=== PATIENT | female | born 1935 | race Caucasian/White ===

== ENCOUNTER 2016-02-13 01:38 | Emergency (ER) | payer MEDICARE, OTHER ==
[~2016-02-13] VITALS: Ht 160 cm; Wt 65.8 kg
[~2016-02-13 01:38] MED LIST: ADVIL,MOTRIN,R200 MG; ASPIRIN81 M1; ATENOLOL25 MG PO; B-100 COMPLEX100 MG PO; CEPHALEXIN500 M1 PO; CIPROFLOXACIN500 MG PO; COQ10 IN OIL 101 SGL PO; DILTIAZEM CD180 MG PO; ELIQUIS5 M1 PO; EXFORGE 5 MG PO; EXFORGE HCT 5 M1 TA1; LEVAQUIN250 MG PO; LIVER COMPLEX1 EACH PO; PREDNISONE20 MG PO; PREMARIN0.3 MG PO; PYRIDIUM100 MG PO; SALINE MIST 4545 ML NAS; TENORMIN25 MG PO; TYLENOL WITH CO1 TA1 PO; VICODIN 5/500 505 MG PO; VITAMIN C100 M3 PO; VITAMIN D1000 IU PO; XANAX0.25 MG; XARE15TA PO; [UNRECOGNIZED DRUG - OTHER] T
[2016-02-13] MEDS ORDERED: COQ1050 MG PO (01:58)
[2016-02-13] MEDS ORDERED: K-TAB10 MEQ PO (01:59)
[2016-02-13 02:16] LABS: BILIRUBIN NEGATIVE (NEGATIVE); BLOOD NEGATIVE (NEGATIVE); CLARITY CLEAR (CLEAR); COLOR YELLOW (YELLOW); GLUCOSE 3+ (NEGATIVE); KETONE NEGATIVE (NEGATIVE); LEUKO ESTERASE NEGATIVE (NEGATIVE); NITRITE NEGATIVE (NEGATIVE); PH 7.5 (5.0-9.0); PROTEIN 1+ (NEGATIVE); UROBILINOGEN 0.2 E.U./dl (0.2-1.0)
[2016-02-13 02:17] LABS: BASO # 0.1 10*3/uL (0.0-0.1); BASO % 0.7 % (0.0-1.0); EOS # 0.1 10*3/uL (0.0-0.4); HEMATOCRIT 41.2 % (37.0-47.0); HEMOGLOBIN 13.8 g/dl (12.0-16.0); LYMPH # 1.6 10*3/uL (1.3-4.4); LYMPH % 22.6 % (27.0-41.0); MEAN CELL VOLUME 99.8 fl (81.0-99.0); MEAN CORPUSCULAR HGB 33.4 pg (27.0-31.0); MEAN CORPUSCULAR HGB CONC 33.5 g/dl (33.0-37.0); MEAN PLATELET VOLUME 9.3 fl (9.6-12.3); MONO # 0.7 10*3/uL (0.1-1.0); MONO % 10.4 % (3.0-9.0); NEUT # 4.5 10*3/uL (2.3-7.9); NEUT % 64.9 % (47.0-73.0); PLATELET COUNT AUTOMATED 332 10*3/uL (130-400); RED BLOOD COUNT 4.13 10*6/uL (4.10-5.10); RED CELL DISTRI WIDTH 14.3 % (0-14.5); WHITE BLOOD COUNT 6.9 10*3/uL (4.8-10.8)
[2016-02-13 02:31] LABS: EPITHELIAL CELLS 0-5; RBC 0-2 rbc/hpf (0-2); URINE REFLEX COMMENT NO (NO)
[2016-02-13 02:37] LABS: BUN 11 mg/dl (7-24); CARBON DIOXIDE 30 mmol/L (21-32); CHLORIDE 98 mmol/L (98-107); EST GLOM FILT AFRICAN AMERICAN > 60 ml/min; GLUCOSE 322 mg/dL (65-99); SODIUM 138 mmol/L (136-145)
[2016-02-13] MEDS ORDERED: METFORMIN500 MG PO (04:22)
== END 2016-02-13 04:29 | disposition home or self-care (01) ==
LOC: ED 01:38
PROVIDERS: Emergency Medicine
DX: E11.65 Type 2 diabetes mellitus with hyperglycemia (principal); Z90.49 Acquired absence of other specified parts of digestive tract; Z90.710 Acquired absence of both cervix and uterus; Z88.2 Allergy status to sulfonamides

== ENCOUNTER 2016-08-19 04:59 | Inpatient (IN) | payer MEDICARE, OTHER ==
[~2016-08-19] VITALS: Ht 160 cm; Wt 56.7 kg
[2016-08-19] VITALS (11 sets, daily range): BP systolic 115–180; BP diastolic 55–88
[~2016-08-19 04:59] MED LIST changes: +COQ1050 MG PO; +K-TAB10 MEQ PO; +METFORMIN500 MG PO
[2016-08-19] MEDS ORDERED: ELIQUIS5 M1 PO (05:13)
[2016-08-19 05:58] LABS: BASO % 0.6 % (0.0-1.0); EOS # 0.1 10*3/uL (0.0-0.4); EOS % 1.3 % (1.0-4.0); HEMATOCRIT 39.9 % (37.0-47.0); HEMOGLOBIN 12.8 g/dl (12.0-16.0); LYMPH # 1.3 10*3/uL (1.3-4.4); LYMPH % 20.3 % (27.0-41.0); MEAN CELL VOLUME 90.3 fl (81.0-99.0); MEAN CORPUSCULAR HGB CONC 32.1 g/dl (33.0-37.0); MEAN PLATELET VOLUME 9.8 fl (9.6-12.3); MONO # 0.7 10*3/uL (0.1-1.0); MONO % 11.5 % (3.0-9.0); NEUT # 4.2 10*3/uL (2.3-7.9); NEUT % 65.7 % (47.0-73.0); PLATELET COUNT AUTOMATED 355 10*3/uL (130-400); RED BLOOD COUNT 4.42 10*6/uL (4.10-5.10); RED CELL DISTRI WIDTH 15.8 % (0-14.5); WHITE BLOOD COUNT 6.3 10*3/uL (4.8-10.8)
[2016-08-19 06:15] LABS: INTERNATIONAL NORM RATIO 1.1 (2.0-3.5); PROTHROMBIN TIME 12.2 SECONDS (9.0-12.4)
[2016-08-19 06:33] LABS: BILIRUBIN 1+ (NEGATIVE); BLOOD 3+ (NEGATIVE); CLARITY SL CLOUDY (CLEAR); COLOR YELLOW (YELLOW); GLUCOSE NEGATIVE (NEGATIVE); KETONE 1+ (NEGATIVE); LEUKO ESTERASE NEGATIVE (NEGATIVE); NITRITE NEGATIVE (NEGATIVE); PH 5.5 (5.0-9.0); PROTEIN 1+ (NEGATIVE)
[2016-08-19 06:41] LABS: BACTERIA 1+
[2016-08-19 06:42] LABS: URINE REFLEX COMMENT YES (NO)
[2016-08-19 06:50] LABS: ALBUMIN 3.4 gm/dl (3.1-4.5); ALKALINE PHOSPHATASE 73 U/L (45-117); BILIRUBIN, TOTAL 0.7 mg/dl (0.2-1.0); BUN 21 mg/dl (7-24); CARBON DIOXIDE 27 mmol/L (21-32); CHLORIDE 103 mmol/L (98-107); EST GLOM FILT AFRICAN AMERICAN > 60 ml/min; GLUCOSE 115 mg/dL (65-99); POTASSIUM 3.7 mmol/L (3.5-5.1); SGOT/AST 28 IU/L (3-35); SGPT/ALT 29 U/L (12-78); SODIUM 136 mmol/L (136-145); TOTAL PROTEIN 7.9 gm/dL (6.4-8.2)
[2016-08-19 12:54] LABS: HEMATOCRIT 37.9 % (37.0-47.0); HEMOGLOBIN 12.1 g/dl (12.0-16.0)
[2016-08-20] VITALS: BP 138/62
[2016-08-20 07:28] LABS: BASO # 0.1 10*3/uL (0.0-0.1); BASO % 1.1 % (0.0-1.0); EOS % 0.9 % (1.0-4.0); HEMATOCRIT 33.1 % (37.0-47.0); HEMOGLOBIN 10.7 g/dl (12.0-16.0); LYMPH # 1.2 10*3/uL (1.3-4.4); LYMPH % 27.2 % (27.0-41.0); MEAN CELL VOLUME 92.7 fl (81.0-99.0); MEAN CORPUSCULAR HGB CONC 32.3 g/dl (33.0-37.0); MEAN PLATELET VOLUME 10.1 fl (9.6-12.3); MONO # 0.6 10*3/uL (0.1-1.0); MONO % 12.4 % (3.0-9.0); NEUT # 2.6 10*3/uL (2.3-7.9); NEUT % 58.2 % (47.0-73.0); PLATELET COUNT AUTOMATED 325 10*3/uL (130-400); RED BLOOD COUNT 3.57 10*6/uL (4.10-5.10); RED CELL DISTRI WIDTH 15.5 % (0-14.5); WHITE BLOOD COUNT 4.5 10*3/uL (4.8-10.8)
[2016-08-20 08:00] VITALS: BP 160/80
[2016-08-20 12:00] VITALS: BP 145/66
[2016-08-20 16:00] VITALS: BP 152/56
[2016-08-20 20:00] VITALS: BP 154/60
[2016-08-21] VITALS: BP 155/62
[2016-08-21 08:00] VITALS: BP 168/93
[2016-08-21 08:43] LABS: BASO # 0.1 10*3/uL (0.0-0.1); BASO % 1.4 % (0.0-1.0); EOS # 0.1 10*3/uL (0.0-0.4); EOS % 1.4 % (1.0-4.0); HEMATOCRIT 33.7 % (37.0-47.0); HEMOGLOBIN 10.8 g/dl (12.0-16.0); LYMPH # 0.9 10*3/uL (1.3-4.4); LYMPH % 20.5 % (27.0-41.0); MEAN CELL VOLUME 92.8 fl (81.0-99.0); MEAN CORPUSCULAR HGB 29.8 pg (27.0-31.0); MEAN PLATELET VOLUME 10.1 fl (9.6-12.3); MONO # 0.6 10*3/uL (0.1-1.0); NEUT # 2.8 10*3/uL (2.3-7.9); NEUT % 63.5 % (47.0-73.0); PLATELET COUNT AUTOMATED 315 10*3/uL (130-400); RED BLOOD COUNT 3.63 10*6/uL (4.10-5.10); RED CELL DISTRI WIDTH 15.7 % (0-14.5); WHITE BLOOD COUNT 4.4 10*3/uL (4.8-10.8)
[2016-08-21 09:13] LABS: BUN 8 mg/dl (7-24); CARBON DIOXIDE 21 mmol/L (21-32); CHLORIDE 106 mmol/L (98-107); EST GLOM FILT AFRICAN AMERICAN > 60 ml/min; GLUCOSE 193 mg/dL (65-99); POTASSIUM 3.8 mmol/L (3.5-5.1); SODIUM 138 mmol/L (136-145)
[2016-08-21 12:00] VITALS: BP 153/66
[2016-08-21 16:00] VITALS: BP 155/63
[2016-08-21 20:00] VITALS: BP 156/68
[2016-08-22] VITALS: BP 150/66
[2016-08-22] MEDS ORDERED: CIPRO500 MG PO (07:31)
[2016-08-22 08:00] VITALS: BP 158/78
== END 2016-08-22 10:15 | disposition home or self-care (01) | DRG 377 ==
LOC: ED 04:59 → EDHOLD 06:59 → 4E 06:59
PROVIDERS: Emergency Medicine; Internal Medicine; Internal Medicine Gastroenterology
PROC: 0W3P8ZZ Control Bleeding in Gastrointestinal Tract, Via Natural or Artificial Opening Endoscopic (ICD-10-PCS; principal; 2016-08-19)
DX: K57.91 Diverticulosis of intestine, part unspecified, without perforation or abscess with bleeding (principal); G93.41 Metabolic encephalopathy; N39.0 Urinary tract infection, site not specified; I48.2 Chronic atrial fibrillation; I10 Essential (primary) hypertension; E11.9 Type 2 diabetes mellitus without complications; B96.20 Unspecified Escherichia coli [E. coli] as the cause of diseases classified elsewhere; K64.9 Unspecified hemorrhoids; K29.50 Unspecified chronic gastritis without bleeding; H35.30 Unspecified macular degeneration; Z90.710 Acquired absence of both cervix and uterus; Z79.01 Long term (current) use of anticoagulants; Z90.49 Acquired absence of other specified parts of digestive tract; Z88.2 Allergy status to sulfonamides; Z91.048 Other nonmedicinal substance allergy status; Z79.899 Other long term (current) drug therapy; Z87.81 Personal history of (healed) traumatic fracture; Z82.49 Family history of ischemic heart disease and other diseases of the circulatory system; Z82.3 Family history of stroke; Z83.3 Family history of diabetes mellitus; Z66 Do not resuscitate; Z51.5 Encounter for palliative care

== ENCOUNTER → 2017-01-23 | Outpatient (CLI) | payer MEDICARE, OTHER ==
[~2017-01-23] MED LIST changes: +CIPRO500 MG PO
== END | disposition home or self-care (01) ==
LOC: ORTHO 01-20 20:43
DX: M17.11 Unilateral primary osteoarthritis, right knee (principal); M85.861 Other specified disorders of bone density and structure, right lower leg; M76.9 Unspecified enthesopathy, lower limb, excluding foot

== ENCOUNTER → 2017-08-24 | Outpatient (CLI) | payer MEDICARE, OTHER | END | disposition home or self-care (01) | LOC: RAD 12:01 | DX: R07.81 Pleurodynia (principal) ==

== ENCOUNTER 2018-05-12 09:31 | Inpatient (IN) | payer MEDICARE, OTHER ==
[2018-05-12] VITALS (7 sets, daily range): BP systolic 158–184; BP diastolic 60–81
[~2018-05-12] VITALS: Ht 160 cm; Wt 59.6 kg
--- NOTE | ~2018-05-12 | EKG ---
[place], [place] ELECTROCARDIOGRAM REPORT NAME: CHAZ ROBERTSON I UNIT #: [id number] ROOM: 512 DOCTOR: SANDI DRAFT REPORT BIRTHDATE: [birth year] [facility] Test Date: 2018-05-12 Test Time: 09:47:17 Pat Name: CHAZ ROBERTSON Department: Room: 512 Gender: F [employer]ter: : [id number] Requested By: THUY ROSARIO PA-C Order Number: [id number] Reading MD: Nicole Tosusaint MD Measurements Intervals [place] Rate: 110 P: MI: QRS: 102 QRSD: 88 T: 64 QT: 372 QTc: 504 Interpretive Statements Atrial fibrillation Right axis deviation Abnormal R-wave progression, late transition Prolonged QT interval Electronically Signed On 05-12-2018 15:09:45 PDT by Nicole Toussaint MD CM:EKGRPT:ELECTROCARDIOGRAM REPORT [id number] TUHY ROSARIO PA-C EPIPHANY DRAFT REPORT THUY ROSARIO PA-C
--- NOTE | ~2018-05-12 | PR ---
[place], [place] PROGRESS NOTE NAME: [facility] ROBERTSON I [id number] UNIT #: [id number] ROOM: 512 DOCTOR: CHANTE MERIDA,JESSICA BIRTHDATE: [birth year] DOS: 05/14/2018 REASON FOR VISIT: CHF and atrial fibrillation. SUBJECTIVE: The patient is feeling better. Denies any chest pain, shortness of breath. She declined IV Bumex today. No palpitation, dizziness, no PND, orthopnea, no edema, no fever and chills. No nausea, vomiting, or diarrhea. No musculoskeletal symptoms, no genitourinary symptoms. No neurologic symptoms. REVIEW OF SYSTEMS: Review of the 8 system negative except as mentioned above. OBJECTIVE PHYSICAL EXAMINATION: VITAL SIGNS: Blood pressure 140/52, pulse 73, respiration is 18. GENERAL: Alert, comfortable, no acute distress. HEENT: Supple, no distended neck veins, no carotid bruit. Pupils are equal, no jaundice. Tongue was moist and pharynx Clear. CHEST: Symmetrical, nontender. LUNGS: Clear to auscultation bilaterally. HEART: Irregularly irregular, no S3. Grade 1/6 systolic murmur. ABDOMEN: Benign, nontender. Bowel sounds normal. EXTREMITIES: Showed no edema. Distal pulses palpable. SKIN: Warm and dry. No cyanosis, no clubbing. RECTAL: Deferred. GENITOURINARY: Deferred. NEUROLOGIC: The patient is alert, oriented. No focal neurologic deficit. IMPRESSION: 1. Atrial fibrillation with rapid ventricular rate, rate controlled. 2. Acute and chronic heart failure, possible diastolic heart failure, 2D echo pending. 3. Valvular heart disease. 4. Hypertension. 5. Borderline elevation of troponin due to tachycardia. RECOMMENDATION: 1. Continue current medication. 2. Continue her Eliquis. 3. The patient elected to take her Lasix 20 mg a day and does not want to take her Bumex. 4. We will check her 2D echo, which was done today. 5. Monitor heart rate and blood pressures. 6. The patient would like to go home today and follow with Dr. Fitzgerald, her filament tester in 1-2 weeks. 7. There is no family at bedside at the time of examination. 8. She will be discharged home today per her request and follow up with her filament tester, Dr. Fitzgerald in 1-2 weeks. Medications and diet compliance was discussed with her. [place], [place] PROGRESS NOTE NAME: CHAZ ROBERTSON I UNIT #: [id number] ROOM: 512 DOCTOR: CHANTE MERIDA,JESSICA BIRTHDATE: [birth year] JESSICA SHARIF MD CM:PNDICK [phone] JESSICA SHARIF MD 05/15/18 0610 interface
--- NOTE | ~2018-05-12 | DS ---
[place], [place] DISCHARGE SUMMARY [id number] UNIT #: [id number] ROOM: 512 DOCTOR: CAITY TRIPLETT MD BIRTHDATE: [birth year] DOS: 05/14/2018 DISCHARGE DIAGNOSES: 1. Acute systolic type congestive heart failure. 2. Minimally elevated troponin I level secondary to acute congestive heart failure. 3. Aortic stenosis. 4. The patient follows up with Dr. Fitzgerald in [place] at [facility]. 5. Chronic atrial fibrillation. The patient is anticoagulated with Eliquis. 6. Chronic obstructive pulmonary disease. 7. Type 2 diabetes mellitus. 8. Macular degeneration. 9. Benign essential hypertension. HOSPITAL COURSE: The patient was admitted to [facility] when she presented to the Emergency Department with increased shortness of breath off and on, especially when lying down, which is getting worse. ProBNP was elevated to 3350. She was found to have acute congestive heart failure on the chest x-ray and some infiltrates, which were not compatible with pneumonia. The patient had no other signs of infection, no fever, no leukocytosis. The patient improved quickly with treatment with IV Bumex and Cardiology were consulted. Aortic stenosis, which contributes to her congestive heart failure, is generally followed by Dr. Fitzgerald in [place] and was reevaluated with an echocardiogram during the stay at the hospital by Dr. Toussaint, the cartography/mapping technician. The patient has acute systolic type congestive heart failure and aortic stenosis treated with diuresis with IV Bumex and she is not requiring oxygen any more. The patient is insisting on going home today at any cost because of her home situation and if cleared by Cardiology, she will be discharged to home. Urinary tract infection with Escherichia coli to be treated with antibiotic as an outpatient. The bacteria is sensitive to all antibiotics checked. Adult failure to thrive and dyspnea on exertion. The patient worked with physical therapy and she is feeling better. LABORATORY DATA: No leukocytosis. Normal CBC. Normal serum electrolytes. Blood sugar 140. DISCHARGE MEDICATIONS: Atenolol 25 mg b.i.d., apixaban 5 mg b.i.d., loratadine 10 mg a day, diltiazem CD 180 mg a day, Xanax p.r.n. DISCHARGE FOLLOWUP: Follow up with Dr. Fitzgerald within a week of discharge and with Dr. Aviva Magdaleno after clearance from Cardiology at the hospital. [place], [place] DISCHARGE SUMMARY NAME: CHAZ ROBERTSON I UNIT #: [id number] ROOM: 512 DOCTOR: CAITY TRIPLETT MD BIRTHDATE: [birth year] CAITY TRIPLETT MD CM:DISCHARG [id number] CAITY TRIPLETT MD 05/14/18 2242 interface
--- NOTE | ~2018-05-12 | PR ---
[place], [place] PROGRESS NOTE NAME: CHAZ ROBERTSON I UNIT #: [id number] ROOM: 512 DOCTOR: CAITY TRIPLETT MD BIRTHDATE: [birth year] DOS: SUBJECTIVE: The patient says her breathing has significantly improved from yesterday. OBJECTIVE: VITAL SIGNS: Blood pressure 144/60, heart rate 83 beats per minute, breathing 16 times per minute, temperature 98.1 degrees Fahrenheit. GENERAL APPEARANCE: The patient is alert and oriented x 3, in no visible distress. HEENT AND NECK: Exam within normal limits. CARDIOVASCULAR SYSTEM: Heart rate is regular in rate and rhythm. S1 and S2 normally audible. LUNGS: Clear to auscultation. ABDOMEN: Soft, nontender. No obvious organomegaly. Bowel sounds are present. EXTREMITIES: Without significant cyanosis or edema. IMPRESSION: 1. The patient with minimal elevation of troponin I levels related to congestive heart failure, evaluated by Dr. Toussaint. 2. Acute systolic type congestive heart failure. The patient was scheduled for an echocardiogram tomorrow. Breathing is improved with treatment with IV Bumex. 3. Aortic stenosis, being reevaluated with an echocardiogram. 4. Chronic atrial fibrillation. The patient anticoagulated with Eliquis. 5. Centrilobular emphysema being treated with bronchodilators. 6. Order a chest x-ray for tomorrow morning and she is also getting an echocardiogram tomorrow. CAITY TRIPLETT MD CM:PNTRANS [id number] CAITY TRIPLETT MD 05/14/18 0433 interface
--- NOTE | ~2018-05-12 | WRIGHTHP ---
[place], [place] PATIENT HISTORY AND PHYSICAL EXAM [facility]: [id number] UNIT #: [id number] ROOM: 512 DOCTOR: CAITY TRIPLETT MD BIRTHDATE: [birth year] DOS: 05/12/2018 HISTORY OF PRESENT ILLNESS: The patient is an 83-year-old female with a past medical history of: 1. Benign essential hypertension. 2. Chronic atrial fibrillation. 3. Type 2 diabetes mellitus. 4. Macular degeneration. The patient presented to [facility] Emergency Department with increasing complaints of shortness of breath off and on, especially when lying down. The patient's chest x-ray showed COPD and signs of congestive heart failure and she was admitted to the hospital for further management. ProBNP was elevated to 3350. After admission, the patient seems to be in a hurry to be discharged to home. The patient has been complaining of dyspnea with exertion and orthopnea. No chest pain. No dizziness or fainting episodes. REVIEW OF SYSTEMS: RESPIRATORY: Increasing shortness of breath. GASTROINTESTINAL: No nausea, vomiting, diarrhea or constipation. CARDIOVASCULAR: No chest pains or palpitations. HOME MEDICATIONS: Diltiazem, atenolol, apixaban, Xanax. ALLERGIES: Known allergies to SULFA. PHYSICAL EXAMINATION: GENERAL: Alert, oriented x 3. VITAL SIGNS: Blood pressure 160/72, heart rate of 85 beats per minute, breathing 17 times per minute, temperature 98 degrees Fahrenheit. HEENT AND NECK: Extraocular movements are intact. Sclerae are anicteric. Oral mucosa is moist and clean. No obvious facial weakness. Neck is supple without any lymphadenopathy. No thyromegaly. No JVD. No carotid arterial bruits. LUNGS: Clear to auscultation. No wheezing. No rhonchi. CARDIOVASCULAR SYSTEM: Heart rate is regular in rate and rhythm. S1 and S2 normally audible. No significant murmur or any other abnormal cardiac sounds. ABDOMEN: Soft, nontender. No obvious organomegaly. Bowel sounds are present. No obvious herniation. EXTREMITIES: Without significant cyanosis or edema. Warm to touch. CENTRAL NERVOUS SYSTEM: Alert and oriented x 3. Cranial nerves II-XII are intact. Speech is normal. The patient is able to move all extremities. Normal muscle strength. Deep tendon reflexes are equal on both sides. Plantars were downgoing. LABORATORY DATA: Normal CBC. Normal serum electrolytes. Blood sugar 197. ProBNP of 3351. Troponin level slightly elevated at 0.060. [place], [place] PATIENT HISTORY AND PHYSICAL EXAM NAME: CHAZ ROBERTSON I UNIT #: [id number] ROOM: 512 DOCTOR: CAITY TRIPLETT MD BIRTHDATE: [birth year] IMPRESSION AND PLAN: 1. The patient presenting with acute systolic type congestive heart failure with chronic atrial fibrillation, to be diuresed with Bumex. We will get an echocardiogram and get Cardiology consult. 2. Slight elevation of troponin level. I will check more levels to rule out acute myocardial infarction and get Cardiology opinion. 3. Benign essential hypertension, to be treated, followed and controlled. 4. Chronic atrial fibrillation, heart rates to be controlled and the patient continued on anticoagulation with apixaban. 5. Acute systolic type congestive heart failure, to be treated with Bumex. 6. Chronic obstructive pulmonary disease, to be treated with bronchodilators. 7. Follow serum electrolytes. CAITY TRIPLETT MD CM:HISPHYS:PATIENT HISTORY AND PHYSICAL EXAMINATION [phone] CAITY TRIPLETT MD 05/12/181824 interface
[2018-05-12 10:22] LABS: BASO % 0.6 % (0.0-1.0); EOS # 0.1 10*3/uL (0.0-0.4); EOS % 1.1 % (1.0-4.0); HEMATOCRIT 39.9 % (37.0-47.0); HEMOGLOBIN 13.2 g/dl (12.0-16.0); LYMPH # 0.8 10*3/uL (1.3-4.4); LYMPH % 12.3 % (27.0-41.0); MEAN CELL VOLUME 98.5 fl (81.0-99.0); MEAN CORPUSCULAR HGB 32.6 pg (27.0-31.0); MEAN CORPUSCULAR HGB CONC 33.1 g/dl (33.0-37.0); MEAN PLATELET VOLUME 9.5 fl (9.6-12.3); MONO # 0.6 10*3/uL (0.1-1.0); MONO % 9.3 % (3.0-9.0); NEUT % 76.4 % (47.0-73.0); PLATELET COUNT AUTOMATED 359 10*3/uL (130-400); RED BLOOD COUNT 4.05 10*6/uL (4.10-5.10); RED CELL DISTRI WIDTH 13.9 % (0-14.5); WHITE BLOOD COUNT 6.5 10*3/uL (4.8-10.8)
[2018-05-12 10:32] LABS: ACT PARTIAL THROMBO TIME 28.4 SECONDS (20.8-31.5); INTERNATIONAL NORM RATIO 1.1 (2.0-3.5)
[2018-05-12 10:46] LABS: ALBUMIN 3.1 gm/dl (3.1-4.5); ALKALINE PHOSPHATASE 112 U/L (45-117); BUN 11 mg/dl (7-24); CHLORIDE 103 mmol/L (98-107); CREATININE 0.67 mg/dL (0.55-1.02); SGOT/AST 22 IU/L (3-35); SGPT/ALT 16 U/L (12-78); SODIUM 138 mmol/L (136-145); TOTAL PROTEIN 8.3 gm/dL (6.4-8.2)
[2018-05-12] MEDS ORDERED: XANAX0.25 MG PO (12:43)
[2018-05-12 16:50] LABS: BILIRUBIN NEGATIVE (NEGATIVE); BLOOD TRACE-LYSED (NEGATIVE); CLARITY CLEAR (CLEAR); COLOR YELLOW (YELLOW); GLUCOSE NEGATIVE (NEGATIVE); KETONE NEGATIVE (NEGATIVE); LEUKO ESTERASE NEGATIVE (NEGATIVE); NITRITE NEGATIVE (NEGATIVE); UROBILINOGEN 0.2 E.U./dl (0.2-1.0)
[2018-05-12 17:10] LABS: BACTERIA 3+; EPITHELIAL CELLS 0-2; RBC 0-2 rbc/hpf (0-2)
[2018-05-13] VITALS: BP 160/50
[2018-05-13 07:17] LABS: BASO % 0.8 % (0.0-1.0); EOS # 0.2 10*3/uL (0.0-0.4); EOS % 2.9 % (1.0-4.0); HEMATOCRIT 35.4 % (37.0-47.0); HEMOGLOBIN 11.6 g/dl (12.0-16.0); LYMPH # 1.2 10*3/uL (1.3-4.4); LYMPH % 22.9 % (27.0-41.0); MEAN CORPUSCULAR HGB 31.8 pg (27.0-31.0); MEAN CORPUSCULAR HGB CONC 32.8 g/dl (33.0-37.0); MEAN PLATELET VOLUME 9.8 fl (9.6-12.3); MONO # 0.6 10*3/uL (0.1-1.0); MONO % 12.4 % (3.0-9.0); NEUT # 3.1 10*3/uL (2.3-7.9); NEUT % 60.8 % (47.0-73.0); PLATELET COUNT AUTOMATED 353 10*3/uL (130-400); RED BLOOD COUNT 3.65 10*6/uL (4.10-5.10); WHITE BLOOD COUNT 5.2 10*3/uL (4.8-10.8)
[2018-05-13 07:36] LABS: BUN 14 mg/dl (7-24); CHLORIDE 105 mmol/L (98-107); CREATININE 0.67 mg/dL (0.55-1.02); POTASSIUM 3.7 mmol/L (3.5-5.1); SODIUM 139 mmol/L (136-145)
[2018-05-13 12:00] VITALS: BP 144/60
[2018-05-13 18:00] VITALS: BP 146/62
[2018-05-13 20:00] VITALS: BP 122/72
[2018-05-14] VITALS: BP 122/76
[2018-05-14 07:56] LABS: BASO # 0.1 10*3/uL (0.0-0.1); BASO % 0.9 % (0.0-1.0); EOS # 0.2 10*3/uL (0.0-0.4); EOS % 3.2 % (1.0-4.0); HEMATOCRIT 38.2 % (37.0-47.0); HEMOGLOBIN 12.4 g/dl (12.0-16.0); LYMPH % 18.6 % (27.0-41.0); MEAN CELL VOLUME 97.7 fl (81.0-99.0); MEAN CORPUSCULAR HGB 31.7 pg (27.0-31.0); MEAN CORPUSCULAR HGB CONC 32.5 g/dl (33.0-37.0); MEAN PLATELET VOLUME 9.6 fl (9.6-12.3); MONO # 0.7 10*3/uL (0.1-1.0); MONO % 12.3 % (3.0-9.0); NEUT # 3.6 10*3/uL (2.3-7.9); NEUT % 64.8 % (47.0-73.0); PLATELET COUNT AUTOMATED 369 10*3/uL (130-400); RED BLOOD COUNT 3.91 10*6/uL (4.10-5.10); RED CELL DISTRI WIDTH 14.1 % (0-14.5); WHITE BLOOD COUNT 5.6 10*3/uL (4.8-10.8)
[2018-05-14 08:00] VITALS: BP 160/58
[2018-05-14 08:37] LABS: BUN 10 mg/dl (7-24); CHLORIDE 105 mmol/L (98-107); POTASSIUM 3.6 mmol/L (3.5-5.1); SODIUM 138 mmol/L (136-145)
[2018-05-14 12:00] VITALS: BP 150/62
[2018-05-14] MEDS ORDERED: AUGMENTIN 875-875 MG PO (15:01)
== END 2018-05-14 16:30 | disposition home or self-care (01) | DRG 292 ==
LOC: ED 09:31 → EDHOLD 11:36 → 5E 11:36
PROVIDERS: Physician Assistant; ADMIT Internal Medicine
DX: I11.0 Hypertensive heart disease with heart failure (principal); N39.0 Urinary tract infection, site not specified; I35.0 Nonrheumatic aortic (valve) stenosis; I50.23 Acute on chronic systolic (congestive) heart failure; I48.2 Chronic atrial fibrillation; E11.9 Type 2 diabetes mellitus without complications; B96.20 Unspecified Escherichia coli [E. coli] as the cause of diseases classified elsewhere; R62.7 Adult failure to thrive; J43.2 Centrilobular emphysema; Z60.2 Problems related to living alone; H35.30 Unspecified macular degeneration; Z79.01 Long term (current) use of anticoagulants; Z85.51 Personal history of malignant neoplasm of bladder; Z87.891 Personal history of nicotine dependence; Z88.2 Allergy status to sulfonamides; Z88.8 Allergy status to other drugs, medicaments and biological substances; Z90.49 Acquired absence of other specified parts of digestive tract; Z90.710 Acquired absence of both cervix and uterus; Z82.49 Family history of ischemic heart disease and other diseases of the circulatory system; Z82.3 Family history of stroke; Z83.3 Family history of diabetes mellitus; Z87.81 Personal history of (healed) traumatic fracture; Z91.81 History of falling; Z79.899 Other long term (current) drug therapy

== ENCOUNTER → 2018-10-24 | Outpatient (CLI) | payer MEDICARE, OTHER ==
[~2018-10-24] MED LIST changes: +AUGMENTIN 875-875 MG PO; +XANAX0.25 MG PO
== END | disposition home or self-care (01) ==
LOC: ORTHO 00:50
DX: M79.641 Pain in right hand (principal)

== ENCOUNTER 2019-04-19 11:39 | Inpatient (IN) | payer MEDICARE, OTHER ==
[~2019-04-19] VITALS: Ht 160 cm; Wt 54.4 kg
[~2019-04-19 11:39] MED LIST changes: -DILTIAZEM CD180 MG PO; +DILTIAZEM CD240 MG PO
[2019-04-19 11:49] VITALS: BP 180/70
[2019-04-19 12:39] LABS: BASO % 0.9 % (0.0-1.0); EOS % 0.4 % (1.0-4.0); HEMATOCRIT 36.3 % (37.0-47.0); LYMPH # 0.7 10*3/uL (1.3-4.4); LYMPH % 14.7 % (27.0-41.0); MEAN CELL VOLUME 99.2 fl (81.0-99.0); MEAN CORPUSCULAR HGB 32.8 pg (27.0-31.0); MEAN CORPUSCULAR HGB CONC 33.1 g/dl (33.0-37.0); MEAN PLATELET VOLUME 9.7 fl (9.6-12.3); MONO # 0.7 10*3/uL (0.1-1.0); MONO % 14.5 % (3.0-9.0); NEUT # 3.2 10*3/uL (2.3-7.9); NEUT % 69.3 % (47.0-73.0); PLATELET COUNT AUTOMATED 325 10*3/uL (130-400); RED BLOOD COUNT 3.66 10*6/uL (4.10-5.10); RED CELL DISTRI WIDTH 14.6 % (0-14.5); WHITE BLOOD COUNT 4.7 10*3/uL (4.8-10.8)
[2019-04-19 12:49] LABS: ACT PARTIAL THROMBO TIME 33.5 SECONDS (20.0-32.1); INTERNATIONAL NORM RATIO 1.1 (2.0-3.5)
[2019-04-19 12:51] LABS: ALBUMIN 3.2 gm/dl (3.1-4.5); ALKALINE PHOSPHATASE 104 U/L (45-117); BUN 12 mg/dl (7-24); CHLORIDE 100 mmol/L (98-107); CREATININE 0.68 mg/dL (0.55-1.02); LIPASE 106 U/L (73-393); SGOT/AST 17 IU/L (3-35); SGPT/ALT 16 U/L (12-78); SODIUM 131 mmol/L (136-145); TOTAL PROTEIN 8.4 gm/dL (6.4-8.2); TROPONIN I < 0.015 ng/ml (<0.045)
[2019-04-19 13:26] VITALS: BP 170/86
[2019-04-19] MEDS ORDERED: AMOXICILLIN500 M3 PO (15:08)
[2019-04-19] MEDS ORDERED: ASPIRIN81 M1 PO (15:09)
[2019-04-19] MEDS ORDERED: CETIRIZINE10 MG PO (15:10)
[2019-04-19] MEDS ORDERED: BENZONATATE100 M1 PO (15:10)
[2019-04-19] MEDS ORDERED: ELIQUIS2.5 M1 PO (15:11)
[2019-04-19] MEDS ORDERED: LASIX20 MG PO (15:12)
[2019-04-19] MEDS ORDERED: LOSARTAN POTASS50 M1 PO (15:12)
[2019-04-19] MEDS ORDERED: POTASSIUM CHLO10 ME5 PO (15:13)
[2019-04-19 16:00] VITALS: BP 150/80; BP 170/86
[2019-04-19 20:00] VITALS: BP 120/62
[2019-04-20 00:39] VITALS: BP 164/70
[2019-04-20 06:26] LABS: BASO % 0.6 % (0.0-1.0); EOS % 0.2 % (1.0-4.0); HEMATOCRIT 35.3 % (37.0-47.0); HEMOGLOBIN 11.6 g/dl (12.0-16.0); LYMPH # 0.6 10*3/uL (1.3-4.4); LYMPH % 11.7 % (27.0-41.0); MEAN CELL VOLUME 97.8 fl (81.0-99.0); MEAN CORPUSCULAR HGB 32.1 pg (27.0-31.0); MEAN CORPUSCULAR HGB CONC 32.9 g/dl (33.0-37.0); MEAN PLATELET VOLUME 9.9 fl (9.6-12.3); MONO # 0.7 10*3/uL (0.1-1.0); MONO % 12.7 % (3.0-9.0); NEUT # 3.9 10*3/uL (2.3-7.9); NEUT % 74.6 % (47.0-73.0); PLATELET COUNT AUTOMATED 308 10*3/uL (130-400); RED BLOOD COUNT 3.61 10*6/uL (4.10-5.10); RED CELL DISTRI WIDTH 14.5 % (0-14.5); WHITE BLOOD COUNT 5.2 10*3/uL (4.8-10.8)
[2019-04-20 06:42] LABS: BUN 12 mg/dl (7-24); CHLORIDE 100 mmol/L (98-107); CREATININE 0.72 mg/dL (0.55-1.02); POTASSIUM 3.6 mmol/L (3.5-5.1); SODIUM 131 mmol/L (136-145)
[2019-04-20 08:00] VITALS: BP 172/79
[2019-04-20 12:00] VITALS: BP 160/70
[2019-04-20 16:00] VITALS: BP 133/57
[2019-04-20 20:00] VITALS: BP 155/63
[2019-04-20 22:29] VITALS: BP 124/50; BP 164/50
[2019-04-21] VITALS: BP 140/56
[2019-04-21 08:00] VITALS: BP 129/91
[2019-04-21 12:00] VITALS: BP 134/83
[2019-04-21 16:00] VITALS: BP 134/72
[2019-04-21 22:00] VITALS: BP 152/48
[2019-04-22] VITALS: BP 126/46
[2019-04-22 06:47] LABS: ALBUMIN 2.6 gm/dl (3.1-4.5); CHLORIDE 101 mmol/L (98-107); SODIUM 133 mmol/L (136-145)
[2019-04-22 06:51] LABS: ALKALINE PHOSPHATASE 74 U/L (45-117); CREATININE 0.78 mg/dL (0.55-1.02); SGOT/AST 17 IU/L (3-35); SGPT/ALT 15 U/L (12-78); TOTAL PROTEIN 6.9 gm/dL (6.4-8.2)
[2019-04-22 07:16] LABS: BUN 25 mg/dl (7-24)
[2019-04-22 08:00] VITALS: BP 152/54
[2019-04-22 12:00] VITALS: BP 135/71
[2019-04-22 16:00] VITALS: BP 139/68; BP 168/64
[2019-04-22 16:08] LABS: MYCOPLASMA PNEUMONIAE IGG 112 U/mL (0-99); MYCOPLASMA PNEUMONIAE IGM <770 U/mL (0-769)
[2019-04-22 20:00] VITALS: BP 189/79
[2019-04-23] VITALS: BP 168/70; BP 178/80
[2019-04-23 07:41] LABS: ALBUMIN 2.8 gm/dl (3.1-4.5); ALKALINE PHOSPHATASE 83 U/L (45-117); BUN 27 mg/dl (7-24); CHLORIDE 104 mmol/L (98-107); CREATININE 0.76 mg/dL (0.55-1.02); POTASSIUM 4.4 mmol/L (3.5-5.1); SGOT/AST 15 IU/L (3-35); SGPT/ALT 18 U/L (12-78); SODIUM 133 mmol/L (136-145); TOTAL PROTEIN 7.6 gm/dL (6.4-8.2)
[2019-04-23 08:00] VITALS: BP 157/65
[2019-04-23 12:00] VITALS: BP 167/56
[2019-04-23 16:00] VITALS: BP 181/52
[2019-04-23 20:00] VITALS: BP 194/67
[2019-04-24] VITALS: BP 155/59
[2019-04-24 06:46] LABS: BASO % 0.2 % (0.0-1.0); HEMATOCRIT 32.5 % (37.0-47.0); HEMOGLOBIN 10.4 g/dl (12.0-16.0); LYMPH # 0.4 10*3/uL (1.3-4.4); LYMPH % 5.8 % (27.0-41.0); MEAN CELL VOLUME 98.5 fl (81.0-99.0); MEAN CORPUSCULAR HGB 31.5 pg (27.0-31.0); MEAN PLATELET VOLUME 10.1 fl (9.6-12.3); MONO # 0.3 10*3/uL (0.1-1.0); MONO % 4.3 % (3.0-9.0); NEUT # 5.7 10*3/uL (2.3-7.9); NEUT % 89.4 % (47.0-73.0); PLATELET COUNT AUTOMATED 343 10*3/uL (130-400); RED CELL DISTRI WIDTH 13.9 % (0-14.5); WHITE BLOOD COUNT 6.4 10*3/uL (4.8-10.8)
[2019-04-24 07:15] LABS: ALBUMIN 2.9 gm/dl (3.1-4.5); ALKALINE PHOSPHATASE 86 U/L (45-117); BUN 31 mg/dl (7-24); CHLORIDE 104 mmol/L (98-107); CREATININE 0.73 mg/dL (0.55-1.02); POTASSIUM 4.5 mmol/L (3.5-5.1); SGOT/AST 26 IU/L (3-35); SGPT/ALT 24 U/L (12-78); SODIUM 133 mmol/L (136-145); TOTAL PROTEIN 7.6 gm/dL (6.4-8.2)
[2019-04-24 08:00] VITALS: BP 164/64
[2019-04-24 12:00] VITALS: BP 158/60
[2019-04-24 16:00] VITALS: BP 142/69
[2019-04-24 20:00] VITALS: BP 173/83
[2019-04-25] VITALS: BP 159/63
[2019-04-25 08:00] VITALS: BP 182/72
[2019-04-25 12:00] VITALS: BP 105/74
[2019-04-25 16:00] VITALS: BP 190/83
[2019-04-25 20:00] VITALS: BP 145/80
[2019-04-26] VITALS: BP 140/70; BP 170/76
[2019-04-26 06:02] LABS: BUN 35 mg/dl (7-24); CHLORIDE 106 mmol/L (98-107); CREATININE 0.69 mg/dL (0.55-1.02); POTASSIUM 4.7 mmol/L (3.5-5.1); SODIUM 139 mmol/L (136-145)
[2019-04-26 06:12] LABS: HEMATOCRIT 31.5 % (37.0-47.0); HEMOGLOBIN 10.5 g/dl (12.0-16.0); LYMPH # 0.9 10*3/uL (1.3-4.4); MEAN CELL VOLUME 97.2 fl (81.0-99.0); MEAN CORPUSCULAR HGB 32.4 pg (27.0-31.0); MEAN CORPUSCULAR HGB CONC 33.3 g/dl (33.0-37.0); MEAN PLATELET VOLUME 10.3 fl (9.6-12.3); MONO # 0.7 10*3/uL (0.1-1.0); MONO % 12.6 % (3.0-9.0); PLATELET COUNT AUTOMATED 360 10*3/uL (130-400); RED BLOOD COUNT 3.24 10*6/uL (4.10-5.10); RED CELL DISTRI WIDTH 13.8 % (0-14.5); WHITE BLOOD COUNT 5.6 10*3/uL (4.8-10.8)
[2019-04-26] MEDS ORDERED: PREDNISONE10 MG PO (07:58)
[2019-04-26] MEDS ORDERED: LEVOFLOXACIN500 MG PO (07:58)
[2019-04-26] MEDS ORDERED: NORCO 5-325 TA1 EACH PO (07:59)
== END 2019-04-26 11:34 | disposition home health service (06) | DRG 177 ==
LOC: ED 11:39 → 4E 13:22 → EDHOLD 13:22 → 5E 14:00 → 4E 04-21 19:26
PROVIDERS: Emergency Medicine; Internal Medicine Critical Care Medicine; ADMIT Internal Medicine
DX: J15.6 Pneumonia due to other Gram-negative bacteria (principal); I50.31 Acute diastolic (congestive) heart failure; J45.901 Unspecified asthma with (acute) exacerbation; I48.21 Permanent atrial fibrillation; E87.1 Hypo-osmolality and hyponatremia; J44.0 Chronic obstructive pulmonary disease with (acute) lower respiratory infection; J44.1 Chronic obstructive pulmonary disease with (acute) exacerbation; I11.0 Hypertensive heart disease with heart failure; T38.0X5A Adverse effect of glucocorticoids and synthetic analogues, initial encounter; Y92.89 Other specified places as the place of occurrence of the external cause; I35.0 Nonrheumatic aortic (valve) stenosis; E11.65 Type 2 diabetes mellitus with hyperglycemia; Z88.2 Allergy status to sulfonamides; Z91.09 Other allergy status, other than to drugs and biological substances; Z90.49 Acquired absence of other specified parts of digestive tract; Z90.710 Acquired absence of both cervix and uterus; Z91.81 History of falling; Z82.3 Family history of stroke; Z82.49 Family history of ischemic heart disease and other diseases of the circulatory system; Z83.3 Family history of diabetes mellitus; R59.0 Localized enlarged lymph nodes; M19.90 Unspecified osteoarthritis, unspecified site; R62.7 Adult failure to thrive; Z98.49 Cataract extraction status, unspecified eye; Z96.1 Presence of intraocular lens; Z66 Do not resuscitate; Z51.5 Encounter for palliative care

== ENCOUNTER 2019-11-03 06:39 | Emergency (ER) | payer MEDICARE, OTHER ==
[~2019-11-03] VITALS: Wt 62.6 kg
[~2019-11-03 06:39] MED LIST changes: +AMOXICILLIN500 M3 PO; +ASPIRIN81 M1 PO; +BENZONATATE100 M1 PO; +CETIRIZINE10 MG PO; +ELIQUIS2.5 M1 PO; +LASIX20 MG PO; +LEVOFLOXACIN500 MG PO; +LOSARTAN POTASS50 M1 PO; +NORCO 5-325 TA1 EACH PO; +POTASSIUM CHLO10 ME5 PO; +PREDNISONE10 MG PO
[2019-11-03 07:10] LABS: BASO % 0.4 % (0.0-1.0); EOS # 0.1 10*3/uL (0.0-0.4); EOS % 0.9 % (1.0-4.0); HEMATOCRIT 40.1 % (37.0-47.0); LYMPH # 0.7 10*3/uL (1.3-4.4); LYMPH % 10.4 % (27.0-41.0); MEAN CELL VOLUME 94.6 fl (81.0-99.0); MEAN CORPUSCULAR HGB 31.1 pg (27.0-31.0); MEAN CORPUSCULAR HGB CONC 32.9 g/dl (33.0-37.0); MEAN PLATELET VOLUME 9.5 fl (9.6-12.3); MONO # 0.7 10*3/uL (0.1-1.0); MONO % 9.8 % (3.0-9.0); NEUT # 5.3 10*3/uL (2.3-7.9); NEUT % 77.6 % (47.0-73.0); PLATELET COUNT AUTOMATED 315 10*3/uL (130-400); RED BLOOD COUNT 4.24 10*6/uL (4.10-5.10); RED CELL DISTRI WIDTH 14.6 % (0-14.5); WHITE BLOOD COUNT 6.8 10*3/uL (4.8-10.8)
[2019-11-03 07:21] LABS: ALBUMIN 3.1 gm/dl (3.1-4.5); ALKALINE PHOSPHATASE 96 U/L (45-117); BUN 16 mg/dl (7-24); CHLORIDE 104 mmol/L (98-107); CREATININE 0.53 mg/dL (0.55-1.02); SGOT/AST 13 IU/L (3-35); SGPT/ALT 23 U/L (12-78); SODIUM 135 mmol/L (136-145); TOTAL PROTEIN 7.6 gm/dL (6.4-8.2)
== END 2019-11-03 09:02 | disposition home or self-care (01) ==
LOC: ED 06:39
PROVIDERS: Emergency Medicine
DX: I11.0 Hypertensive heart disease with heart failure (principal); I50.9 Heart failure, unspecified; Z88.2 Allergy status to sulfonamides; Z79.899 Other long term (current) drug therapy

== ENCOUNTER → 2020-05-08 | Outpatient (CLI) | payer MEDICARE, OTHER ==
[~2020-05-08] MED LIST changes: +ALPRAZOLAM0.5 M3 PO; +Amaryl2 MG PO; +BIOFREEZE118 ML T; +MEGACE 40400 MG/10 PO; +MIRALAX POWDER17 G1 PO; +OMEPRAZOLE20 M2 PO; +PROAIR HFA8.5 GM INH; +TYLENOL EXTRA500 MG PO; +TYLENOL325 M1 PO; +ZYRTEC10 M3 PO
== END | disposition home or self-care (01) ==
LOC: CARD 04-23 13:00
PROVIDERS: ATTEND Internal Medicine
DX: I08.3 Combined rheumatic disorders of mitral, aortic and tricuspid valves (principal)

== ENCOUNTER 2020-05-11 12:40 | Inpatient (IN) | payer MEDICARE, OTHER ==
[~2020-05-11] VITALS: Ht 160 cm; Wt 58.7 kg
[~2020-05-11 12:40] MED LIST changes: -ALPRAZOLAM0.5 M3 PO; -Amaryl2 MG PO; -BIOFREEZE118 ML T; -MEGACE 40400 MG/10 PO; -MIRALAX POWDER17 G1 PO; -OMEPRAZOLE20 M2 PO; -PROAIR HFA8.5 GM INH; -TYLENOL EXTRA500 MG PO; -TYLENOL325 M1 PO; -ZYRTEC10 M3 PO
[2020-05-11 12:52] VITALS: BP 139/85
[2020-05-11 13:59] LABS: HEMATOCRIT 35.4 % (37.0-47.0); MEAN CELL VOLUME 88.9 fl (81.0-99.0); MEAN CORPUSCULAR HGB 27.4 pg (27.0-31.0); MEAN CORPUSCULAR HGB CONC 30.8 g/dl (33.0-37.0); MEAN PLATELET VOLUME 9.7 fl (9.6-12.3); PLATELET COUNT AUTOMATED 449 10*3/uL (130-400); RED BLOOD COUNT 3.98 10*6/uL (4.10-5.10); RED CELL DISTRI WIDTH 15.2 % (0-14.5)
[2020-05-11 14:10] LABS: ACT PARTIAL THROMBO TIME 36.6 SECONDS (20.0-32.1); INTERNATIONAL NORM RATIO 1.5 (2.0-3.5)
[2020-05-11 14:14] LABS: ALBUMIN 3.2 gm/dl (3.1-4.5); CREATININE 1.06 mg/dL (0.55-1.02); TOTAL PROTEIN 7.9 gm/dL (6.4-8.2)
[2020-05-11 14:17] LABS: TROPONIN I 0.099 ng/ml (<0.045)
[2020-05-11 14:22] LABS: BASOPHILS 2 % (0-1); PLATELET SUFFICIENCY HIGH (NORMAL); TOTAL CELLS COUNTED 100 #CELLS
[2020-05-11 14:23] LABS: BURR CELLS MODERATE
[2020-05-11] MEDS ORDERED: PROAIR HFA8.5 GM INH (15:34)
[2020-05-11] MEDS ORDERED: OMEPRAZOLE20 M2 PO (15:35)
[2020-05-11] MEDS ORDERED: ELIQUIS5 M1 PO (15:36)
[2020-05-11] MEDS ORDERED: Amaryl2 MG PO (15:36)
[2020-05-11] MEDS ORDERED: MIRALAX POWDER17 G1 PO (15:37)
[2020-05-11] MEDS ORDERED: ALPRAZOLAM0.5 M3 PO (15:37)
[2020-05-11] MEDS ORDERED: MEGACE 40400 MG/10 PO (15:40)
[2020-05-11] MEDS ORDERED: ZYRTEC10 M3 PO (15:52)
[2020-05-11 16:30] VITALS: BP 150/38; BP 150/68
[2020-05-11] MEDS ORDERED: TYLENOL EXTRA500 MG PO (16:48)
[2020-05-11] MEDS ORDERED: TYLENOL325 M1 PO (16:49)
[2020-05-11] MEDS ORDERED: BIOFREEZE118 ML T (16:50)
[2020-05-11 20:00] VITALS: BP 135/54
[2020-05-12] VITALS: BP 153/85
[2020-05-12 06:35] LABS: BUN 16 mg/dl (7-24); CHLORIDE 105 mmol/L (98-107); CREATININE 0.69 mg/dL (0.55-1.02); POTASSIUM 3.6 mmol/L (3.5-5.1); SODIUM 134 mmol/L (136-145)
[2020-05-12 08:00] VITALS: BP 156/55
[2020-05-12 12:00] VITALS: BP 138/83
[2020-05-12 16:00] VITALS: BP 135/80
[2020-05-12 20:00] VITALS: BP 174/94
[2020-05-13 00:22] VITALS: BP 127/89
[2020-05-13 07:05] LABS: BUN 17 mg/dl (7-24); CHLORIDE 106 mmol/L (98-107); POTASSIUM 3.9 mmol/L (3.5-5.1); SODIUM 136 mmol/L (136-145)
[2020-05-13 08:00] VITALS: BP 131/65
== END 2020-05-13 10:39 | disposition home or self-care (01) | DRG 604 ==
LOC: ED 12:40 → 5E 14:35 → EDHOLD 14:35 → 5E 15:34
PROVIDERS: Emergency Medicine; ADMIT Internal Medicine; ATTEND Internal Medicine
DX: S91.301A Unspecified open wound, right foot, initial encounter (principal); I50.33 Acute on chronic diastolic (congestive) heart failure; I48.21 Permanent atrial fibrillation; E87.2 Acidosis; S80.821A Blister (nonthermal), right lower leg, initial encounter; X58.XXXA Exposure to other specified factors, initial encounter; E11.9 Type 2 diabetes mellitus without complications; I11.0 Hypertensive heart disease with heart failure; J44.9 Chronic obstructive pulmonary disease, unspecified; Z66 Do not resuscitate; Z51.5 Encounter for palliative care; I35.2 Nonrheumatic aortic (valve) stenosis with insufficiency; F41.1 Generalized anxiety disorder; Z88.2 Allergy status to sulfonamides; Z90.49 Acquired absence of other specified parts of digestive tract; Z90.710 Acquired absence of both cervix and uterus; Z82.49 Family history of ischemic heart disease and other diseases of the circulatory system; Z83.3 Family history of diabetes mellitus; Z82.3 Family history of stroke; Y93.89 Activity, other specified; Y92.89 Other specified places as the place of occurrence of the external cause; Y99.8 Other external cause status

== ENCOUNTER → 2020-05-28 | Outpatient (CLI) | payer MEDICARE, OTHER ==
[~2020-05-28] MED LIST changes: +ALPRAZOLAM0.5 M3 PO; +Amaryl2 MG PO; +BIOFREEZE118 ML T; +MEGACE 40400 MG/10 PO; +MIRALAX POWDER17 G1 PO; +OMEPRAZOLE20 M2 PO; +PROAIR HFA8.5 GM INH; +TYLENOL EXTRA500 MG PO; +TYLENOL325 M1 PO; +ZYRTEC10 M3 PO
== END ==
LOC: WOUNDCARE 11:49
PROVIDERS: ATTEND Nurse Practitioner
DX: E11.621 Type 2 diabetes mellitus with foot ulcer (principal); L97.512 Non-pressure chronic ulcer of other part of right foot with fat layer exposed; E11.622 Type 2 diabetes mellitus with other skin ulcer; L97.812 Non-pressure chronic ulcer of other part of right lower leg with fat layer exposed; S91.311A Laceration without foreign body, right foot, initial encounter; S81.811A Laceration without foreign body, right lower leg, initial encounter; R60.9 Edema, unspecified; E11.69 Type 2 diabetes mellitus with other specified complication; I50.9 Heart failure, unspecified; I48.91 Unspecified atrial fibrillation; J44.9 Chronic obstructive pulmonary disease, unspecified; Z90.710 Acquired absence of both cervix and uterus; Z88.2 Allergy status to sulfonamides; X58.XXXA Exposure to other specified factors, initial encounter; Y93.89 Activity, other specified; Y92.89 Other specified places as the place of occurrence of the external cause; Y99.8 Other external cause status

== ENCOUNTER → 2020-06-08 | Outpatient (CLI) | payer MEDICARE, OTHER | LOC: WOUNDCARE 01:29 | PROVIDERS: ATTEND Nurse Practitioner | DX: E11.622 Type 2 diabetes mellitus with other skin ulcer (principal); L97.812 Non-pressure chronic ulcer of other part of right lower leg with fat layer exposed; S91.311D Laceration without foreign body, right foot, subsequent encounter; S81.811D Laceration without foreign body, right lower leg, subsequent encounter; R60.9 Edema, unspecified; E11.49 Type 2 diabetes mellitus with other diabetic neurological complication; I50.9 Heart failure, unspecified; I48.91 Unspecified atrial fibrillation; J44.9 Chronic obstructive pulmonary disease, unspecified; Z90.710 Acquired absence of both cervix and uterus; Z88.2 Allergy status to sulfonamides; X58.XXXD Exposure to other specified factors, subsequent encounter ==

== ENCOUNTER 2020-06-15 17:13 | Inpatient (IN) | payer MEDICARE, OTHER ==
[~2020-06-15] VITALS: Ht 162.5 cm; Wt 63.5 kg
[2020-06-15 17:21] VITALS: BP 143/73
[2020-06-15 17:47] LABS: HEMATOCRIT 35.5 % (37.0-47.0); MEAN CELL VOLUME 86.6 fl (81.0-99.0); MEAN CORPUSCULAR HGB 26.6 pg (27.0-31.0); MEAN CORPUSCULAR HGB CONC 30.7 g/dl (33.0-37.0); MEAN PLATELET VOLUME 9.6 fl (9.6-12.3); PLATELET COUNT AUTOMATED 488 10*3/uL (130-400); RED CELL DISTRI WIDTH 17.5 % (0-14.5); WHITE BLOOD COUNT 5.4 10*3/uL (4.8-10.8)
[2020-06-15 18:03] LABS: ALBUMIN 3.4 gm/dl (3.1-4.5); CREATININE 1.14 mg/dL (0.55-1.02); POTASSIUM 4.7 mmol/L (3.5-5.1); TOTAL PROTEIN 8.4 gm/dL (6.4-8.2)
[2020-06-15 18:08] LABS: ACT PARTIAL THROMBO TIME 30.8 SECONDS (20.0-32.1); INTERNATIONAL NORM RATIO 1.5 (2.0-3.5)
[2020-06-15 18:10] LABS: TROPONIN I 0.12 ng/ml (<0.045)
[2020-06-15 18:36] LABS: ATYPICAL LYMPHS 4 % (0-0); TOTAL CELLS COUNTED 100 #CELLS
[2020-06-15 18:37] LABS: BURR CELLS FEW; SCHISTOCYTES FEW
[2020-06-15 18:38] LABS: PLATELET SUFFICIENCY HIGH (NORMAL)
[2020-06-15 18:53] VITALS: BP 142/61
[2020-06-15 19:07] VITALS: BP 151/77
[2020-06-15 20:56] VITALS: BP 147/61
[2020-06-15 22:34] VITALS: BP 116/49
[2020-06-15] MEDS ORDERED: FUROSEMIDE20 M1 PO (22:38)
[2020-06-15] MEDS ORDERED: ALLEGRA ALLERG180 M2 PO (22:51)
[2020-06-15] MEDS ORDERED: NEPHRO-VITE RX1 EACH PO (22:52)
[2020-06-15] MEDS ORDERED: BUMETANIDE1 MG PO (22:55)
[2020-06-15 23:00] VITALS: BP 140/71
[2020-06-16 04:00] VITALS: BP 167/84
[2020-06-16 08:00] VITALS: BP 122/74
[2020-06-16 12:00] VITALS: BP 134/88
[2020-06-16 16:00] VITALS: BP 140/81
[2020-06-16 20:00] VITALS: BP 124/60
[2020-06-17] VITALS: BP 126/66
[2020-06-17 06:34] LABS: ALBUMIN 3.2 gm/dl (3.1-4.5); CREATININE 1.31 mg/dL (0.55-1.02); POTASSIUM 3.8 mmol/L (3.5-5.1); TOTAL PROTEIN 7.8 gm/dL (6.4-8.2)
[2020-06-17 08:00] VITALS: BP 141/80
[2020-06-17 12:00] VITALS: BP 116/65
[2020-06-17 16:00] VITALS: BP 145/63
[2020-06-17 20:00] VITALS: BP 155/70
[2020-06-18] VITALS: BP 157/61
[2020-06-18 08:00] VITALS: BP 150/65
[2020-06-18] MEDS ORDERED: TENORMIN25 MG PO (09:05)
[2020-06-18 10:10] LABS: CREATININE 1.18 mg/dL (0.55-1.02); POTASSIUM 3.6 mmol/L (3.5-5.1)
== END 2020-06-18 10:36 | disposition home health service (06) | DRG 308 ==
LOC: ED 17:13 → EDHOLD 18:49 → 4E 18:49
PROVIDERS: Emergency Medicine; Internal Medicine; Social Worker Clinical; ADMIT Internal Medicine; ATTEND Internal Medicine
DX: I48.21 Permanent atrial fibrillation (principal); I50.33 Acute on chronic diastolic (congestive) heart failure; I13.0 Hypertensive heart and chronic kidney disease with heart failure and stage 1 through stage 4 chronic kidney disease, or unspecified chronic kidney disease; I24.8 Other forms of acute ischemic heart disease; E11.22 Type 2 diabetes mellitus with diabetic chronic kidney disease; N18.31 Chronic kidney disease, stage 3a; J44.9 Chronic obstructive pulmonary disease, unspecified; I27.20 Pulmonary hypertension, unspecified; S81.801A Unspecified open wound, right lower leg, initial encounter; I08.3 Combined rheumatic disorders of mitral, aortic and tricuspid valves; Z66 Do not resuscitate; Z51.5 Encounter for palliative care; R62.7 Adult failure to thrive; S91.301A Unspecified open wound, right foot, initial encounter; X58.XXXA Exposure to other specified factors, initial encounter; Y93.89 Activity, other specified; Y92.89 Other specified places as the place of occurrence of the external cause; Y99.8 Other external cause status; Z79.01 Long term (current) use of anticoagulants; Z88.2 Allergy status to sulfonamides; Z88.8 Allergy status to other drugs, medicaments and biological substances; Z90.49 Acquired absence of other specified parts of digestive tract; Z90.710 Acquired absence of both cervix and uterus; Z86.79 Personal history of other diseases of the circulatory system

== ENCOUNTER → 2020-06-22 | Outpatient (CLI) | payer MEDICARE, OTHER ==
[~2020-06-22] MED LIST changes: +ALLEGRA ALLERG180 M2 PO; +BUMETANIDE1 MG PO; +FUROSEMIDE20 M1 PO; +NEPHRO-VITE RX1 EACH PO
== END ==
LOC: WOUNDCARE 07:02
PROVIDERS: ATTEND Nurse Practitioner
DX: E11.622 Type 2 diabetes mellitus with other skin ulcer (principal); L97.812 Non-pressure chronic ulcer of other part of right lower leg with fat layer exposed; S91.311D Laceration without foreign body, right foot, subsequent encounter; S81.811D Laceration without foreign body, right lower leg, subsequent encounter; R60.9 Edema, unspecified; E11.49 Type 2 diabetes mellitus with other diabetic neurological complication; I50.9 Heart failure, unspecified; I48.91 Unspecified atrial fibrillation; J44.9 Chronic obstructive pulmonary disease, unspecified; Z90.710 Acquired absence of both cervix and uterus; Z88.2 Allergy status to sulfonamides; X58.XXXD Exposure to other specified factors, subsequent encounter

== ENCOUNTER 2020-07-16 18:46 | Inpatient (IN) | payer MEDICARE, OTHER ==
[~2020-07-16] VITALS: Ht 157.4 cm; Wt 67.7 kg
[~2020-07-16 18:46] MED LIST changes: +ZYVOX600 MG PO
[2020-07-16 18:47] VITALS: BP 131/48
[2020-07-16 19:55] LABS: BASO # 0.1 10*3/uL (0.0-0.1); BASO % 0.7 % (0.0-1.0); EOS # 0.1 10*3/uL (0.0-0.4); EOS % 1.3 % (1.0-4.0); LYMPH # 0.9 10*3/uL (1.3-4.4); LYMPH % 12.4 % (27.0-41.0); MEAN CELL VOLUME 82.2 fl (81.0-99.0); MEAN CORPUSCULAR HGB 25.5 pg (27.0-31.0); MEAN PLATELET VOLUME 8.5 fl (9.6-12.3); MONO # 0.8 10*3/uL (0.1-1.0); NEUT # 5.7 10*3/uL (2.3-7.9); NEUT % 75.3 % (47.0-73.0); PLATELET COUNT AUTOMATED 408 10*3/uL (130-400); RED BLOOD COUNT 3.65 10*6/uL (4.10-5.10); RED CELL DISTRI WIDTH 19.6 % (0-14.5); WHITE BLOOD COUNT 7.5 10*3/uL (4.8-10.8)
[2020-07-16 20:09] LABS: ALBUMIN 2.6 gm/dl (3.1-4.5); CREATININE 2.06 mg/dL (0.55-1.02); POTASSIUM 3.8 mmol/L (3.5-5.1); TOTAL PROTEIN 7.5 gm/dL (6.4-8.2)
[2020-07-16 21:10] VITALS: BP 142/68
[2020-07-16 22:55] VITALS: BP 131/54
[2020-07-17] VITALS: BP 131/54
[2020-07-17 06:06] LABS: BASO % 0.6 % (0.0-1.0); EOS # 0.1 10*3/uL (0.0-0.4); EOS % 1.6 % (1.0-4.0); HEMATOCRIT 28.7 % (37.0-47.0); LYMPH # 0.8 10*3/uL (1.3-4.4); LYMPH % 11.5 % (27.0-41.0); MEAN CELL VOLUME 83.4 fl (81.0-99.0); MEAN CORPUSCULAR HGB 25.6 pg (27.0-31.0); MEAN CORPUSCULAR HGB CONC 30.7 g/dl (33.0-37.0); MEAN PLATELET VOLUME 8.7 fl (9.6-12.3); MONO # 0.9 10*3/uL (0.1-1.0); MONO % 13.2 % (3.0-9.0); NEUT # 5.1 10*3/uL (2.3-7.9); NEUT % 72.8 % (47.0-73.0); PLATELET COUNT AUTOMATED 374 10*3/uL (130-400); RED BLOOD COUNT 3.44 10*6/uL (4.10-5.10); RED CELL DISTRI WIDTH 19.8 % (0-14.5)
[2020-07-17 06:24] LABS: CREATININE 1.71 mg/dL (0.55-1.02); POTASSIUM 3.5 mmol/L (3.5-5.1)
[2020-07-17 08:00] VITALS: BP 140/58
[2020-07-17 12:00] VITALS: BP 122/50
[2020-07-17 16:00] VITALS: BP 120/56
[2020-07-17 20:00] VITALS: BP 139/64
[2020-07-18] VITALS: BP 117/47; BP 150/64
[2020-07-18 08:00] VITALS: BP 156/80
[2020-07-18 12:00] VITALS: BP 147/62
[2020-07-18 16:00] VITALS: BP 141/59
[2020-07-18 20:00] VITALS: BP 155/55
[2020-07-18 21:09] LABS: BILIRUBIN Negative (Negative); BLOOD Negative (Negative); CLARITY Clear (Clear); COLOR Yellow (Yellow); GLUCOSE Negative (Negative); KETONE Negative (Negative); LEUKO ESTERASE Trace (Negative); NITRITE Negative (Negative)
[2020-07-18 21:18] LABS: URINE CHLORIDE, RANDOM < 10 mmol/L
[2020-07-18 21:28] LABS: BACTERIA 1+
[2020-07-18 21:29] LABS: YEAST 1+
[2020-07-19] VITALS: BP 122/52
[2020-07-19] MEDS ORDERED: GLIMEPIRIDE2 MG PO (05:51)
[2020-07-19 06:09] LABS: HEMATOCRIT 30.9 % (37.0-47.0); MEAN CELL VOLUME 82.8 fl (81.0-99.0); MEAN CORPUSCULAR HGB 25.5 pg (27.0-31.0); MEAN CORPUSCULAR HGB CONC 30.7 g/dl (33.0-37.0); MEAN PLATELET VOLUME 9.1 fl (9.6-12.3); PLATELET COUNT AUTOMATED 422 10*3/uL (130-400); RED BLOOD COUNT 3.73 10*6/uL (4.10-5.10); RED CELL DISTRI WIDTH 19.9 % (0-14.5); WHITE BLOOD COUNT 10.1 10*3/uL (4.8-10.8)
[2020-07-19 06:34] LABS: CREATININE 1.61 mg/dL (0.55-1.02); POTASSIUM 4.1 mmol/L (3.5-5.1)
[2020-07-19 07:12] LABS: OVALOCYTES MODERATE; PLATELET SUFFICIENCY HIGH (NORMAL); POLYCHROMASIA SLIGHT; TOTAL CELLS COUNTED 100 #CELLS
[2020-07-19 08:00] VITALS: BP 156/61
== END 2020-07-19 15:27 | disposition home health service (06) | DRG 393 ==
LOC: ED 18:46 → 5E 22:14 → EDHOLD 22:14 → 5E 22:34
PROVIDERS: Emergency Medicine; Student in an Organized Health Care Education/Training Program; ADMIT Internal Medicine; ATTEND Internal Medicine
DX: K52.1 Toxic gastroenteritis and colitis (principal); N17.0 Acute kidney failure with tubular necrosis; I50.22 Chronic systolic (congestive) heart failure; I48.21 Permanent atrial fibrillation; E87.1 Hypo-osmolality and hyponatremia; I13.0 Hypertensive heart and chronic kidney disease with heart failure and stage 1 through stage 4 chronic kidney disease, or unspecified chronic kidney disease; R62.7 Adult failure to thrive; E86.0 Dehydration; N90.7 Vulvar cyst; J43.2 Centrilobular emphysema; F41.1 Generalized anxiety disorder; Z66 Do not resuscitate; Z51.5 Encounter for palliative care; N18.9 Chronic kidney disease, unspecified; E11.22 Type 2 diabetes mellitus with diabetic chronic kidney disease; E11.649 Type 2 diabetes mellitus with hypoglycemia without coma; I35.2 Nonrheumatic aortic (valve) stenosis with insufficiency; T36.8X5A Adverse effect of other systemic antibiotics, initial encounter; Y92.89 Other specified places as the place of occurrence of the external cause; Z88.2 Allergy status to sulfonamides; Z79.899 Other long term (current) drug therapy; Z79.84 Long term (current) use of oral hypoglycemic drugs; Z68.27 Body mass index [BMI] 27.0-27.9, adult